=== PATIENT | male | born 1990 | race Two or more races ===

== ENCOUNTER 2018-07-16 12:20 | Emergency (ER) | payer MEDICAID ==
[~2018-07-16] VITALS: Ht 165.1 cm; Wt 65.8 kg
[2018-07-16 13:47] VITALS: BP 112/64
[2018-07-16] MEDS ORDERED: TETRACAINE HCL 0.5% OPTH(EYE) SOLN 4ML EACHEYE ONE (14:30)
== END 2018-07-16 14:54 | disposition home or self-care (01) ==
LOC: ER 12:26
DX: T15.02XA Foreign body in cornea, left eye, initial encounter (principal); X58.XXXA Exposure to other specified factors, initial encounter; Y93.89 Activity, other specified; Y99.8 Other external cause status; Y92.89 Other specified places as the place of occurrence of the external cause
CPT/HCPCS: 65220